=== PATIENT | male | born 2005 ===

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

== ENCOUNTER 2023-06-25 13:00 | Emergency (ER) | payer OTHER ==
[~2023-06-25] VITALS: Ht 185.4 cm; Wt 72.6 kg
[~2023-06-25 13:00] MED LIST changes: +AMOCLA875 PO
[2023-06-25 13:22] VITALS: BP 130/95
[2023-06-25] MEDS ORDERED: SUBOXONE 8 MG-1 EACH SL (15:34)
== END 2023-06-25 16:10 | disposition home or self-care (01) ==
LOC: ER 13:00
DX: F11.90 Opioid use, unspecified, uncomplicated (principal); F17.200 Nicotine dependence, unspecified, uncomplicated; Z88.0 Allergy status to penicillin
CPT/HCPCS: 99283; A9270